=== PATIENT | male | born 1970 | race African-American/Black ===

== ENCOUNTER 2018-01-26 17:33 | Emergency (ER) | payer MEDICAID ==
[~2018-01-26] VITALS: Ht 175.3 cm; Wt 90.0 kg
[2018-01-27] MEDS ORDERED: KETOROLAC 60MG/2ML VIAL IM STA (03:06)
[2018-01-27 05:52] VITALS: BP 132/89
== END 2018-01-27 06:17 | disposition home or self-care (01) ==
LOC: ER 17:43
DX: S80.02XA Contusion of left knee, initial encounter (principal); S40.022A Contusion of left upper arm, initial encounter; M54.9 Dorsalgia, unspecified; W10.8XXA Fall (on) (from) other stairs and steps, initial encounter; Y93.89 Activity, other specified; Y92.89 Other specified places as the place of occurrence of the external cause; E78.00 Pure hypercholesterolemia, unspecified
CPT/HCPCS: 72100; 73060; 73562; 96372; 99284; J1885; Z7610